=== PATIENT | female | born 1970 | race Caucasian/White ===

== ENCOUNTER 2020-01-22 18:29 | Emergency (ER) | payer BC, SELFPAY ==
[2020-01-22 18:44] VITALS: BP 129/72; PULSE 82; RESP 18; TEMP 37.1; O2SAT 98
--- NOTE | 2020-01-22 18:44 | ED.SKABFB ---
HPI - Skin/Abscess/Foreign Bdy General Chief complaint: Wound/Laceration Stated complaint: fish hook in her back Time Seen by Provider: 01/22/20 18:32 Source: patient Mode of arrival: ambulatory Limitations: no limitations History of Present Illness HPI narrative: 49-year-old female presents to urgent care with complaints of fishhook lodged to her left upper back for the past 30 minutes. Patient reports her last tetanus was 6 to 7 years ago. Patient denies numbness, tingling, fever, body aches, chills, nausea, vomiting or diarrhea. MD complaint: foreign body (fish hook) Onset (ago): minute(s) (30) Tetanus up to date: no Location: back (left upper back) Severity: mild Severity scale (1-10): 1 Relieving factors: medication Exacerbating factors: none Associated symptoms: denies other symptoms Treatments prior to arrival: none Related Data Home Medications Medication Instructions Recorded Confirmed topiramate [Topamax] 75 mg PO BID 01/22/20 01/22/20 Allergies Allergy/AdvReac Type Severity Reaction Status Date / Time No Known Allergies Allergy Verified 01/22/20 18:46 Review of Systems Review of Systems: All systems reviewed & are unremarkable except as noted in HPI and below Constitutional: Constitutional: Denies chills, Denies fever(s) and Denies weakness Cardiovascular: Cardiovascular: Denies chest pain, Denies rapid heart rate and Denies radiating jaw, neck or arm pain Respiratory: Respiratory: Denies cough, Denies dyspnea and Denies wheezing Gastrointestinal: Gastrointestinal: Denies diarrhea, Denies nausea and Denies vomiting Integumentary/Breasts: Comments: FB to left upper back Neurologic: Denies dizziness and Denies syncope [facility] Past Medical History Medical History (Updated 01/22/20 @ 19:04 by Bhakti Laboy APRN) Migraine Family History Family History (Updated 01/22/20 @ 18:46 by Bhakti Laboy APRN) Father Carcinoma of colon Mother No problems noted. Social History Social History (Updated 01/22/20 @ 18:47 by Bhakti Laboy APRN) Smoking status: Never smoker Gender identity (if verbalized by the patient): Female Exam Const: General: healthy appearing, no acute distress and alert Orientation/consciousness: patient oriented x3 Neck: Neck: normal visual inspection Resp: Effort & Inspection: normal respiratory effort and not labored Auscultation: clear to auscultation bilaterally and no rhonchi Cardio: Rate: regular rate, not bradycardic and not tachycardic Rhythm: regular rhythm Heart sounds: no murmurs Back/Spine/Pelvis: Back: no CVA tenderness Skin: General skin exam: normal color Rashes: no rashes Other: 2 hooks of a Trebble Boomer lodged lodged to left upper back -- no bleeding noted. Extrem: General: normal to inspection and full ROM Psych: Appearance: grossly normal and well kempt Affect: normal affect Attitude: cooperative Course Vital Signs Vital signs: Vital Signs Temperature 37.1 C 01/22/20 18:44 Pulse Rate 82 01/22/20 18:44 Respiratory Rate 18 01/22/20 18:44 Blood Pressure 129/72 01/22/20 18:44 Pulse Oximetry 98 01/22/20 18:44 Temperature 37.1 C 01/22/20 18:44 Pulse Rate 82 01/22/20 18:44 Respiratory Rate 18 01/22/20 18:44 Blood Pressure 129/72 01/22/20 18:44 Pulse Oximetry 98 01/22/20 18:44 Procedures Foreign Body Removal Foreign Body #1: Foreign Body Removal Date: 01/22/20 Foreign Body Removal Time: 19:00 Site: left and other (upper back) Description of foreign body: fish hook (2 hooks of a treble fish hook ) Sedation/Analgesia: other (1.5ml of Lidocaine 1%) Technique: removal with forceps Complications: none Foreign Body Removal Narrative: Patient tolerated well -- area cleansed, neosporin and bandage applied MDM - Skin/Abscess/Foreign Bdy MDM Narrative Medical decision making narrative: Wound care discussed with patient -- patient ag
[2020-01-22] MEDS: TETANUS,DIPHTHERIA,AC PERTUSSIS ADULT (0.5 ML) BOOSTRIX IM (18:46)
--- NOTE | 2020-01-22 18:59 | PC.NURSE ---
fish hook removed tolerated well
== END 2020-01-22 19:08 | disposition home or self-care (01) ==
PROVIDERS: Emergency Provider Nurse Practitioner Family
DX: S21.242A Puncture wound with foreign body of left back wall of thorax without penetration into thoracic cavity, initial encounter (principal); X58.XXXA Exposure to other specified factors, initial encounter; Z23 Encounter for immunization
CPT/HCPCS: 90471; 90715; 99203; G0463

== ENCOUNTER 2020-11-04 12:35 | Emergency (ER) | payer BC, SELFPAY ==
--- NOTE | ~2020-11-04 | CT_ITS ---
EXAMINATION: CT brain wo con DATE: 11/04/2020 13:29 INDICATION: Neck pain. Fall. TECHNIQUE: Computed tomography (CT) of the head was performed without intravenous contrast. The mA wa s adjusted according to patient size. Iterative reconstruction technique was employed. The dose-lengt h product was 605.33 mGy-cm. COMPARISON: None FINDINGS: There is no intracranial hemorrhage, acute infarction, or abnormal intracranial mass lesion . The ventricles are normal in size. There is mild mucosal thickening in the paranasal sinuses. The m astoid air cells are normal. IMPRESSION: 1. Normal brain. Reviewed, dictated and finalized at location A. IMPRESSION: 1. Normal brain.
--- NOTE | ~2020-11-04 | XR_ITS ---
EXAMINATION: XR elbow LT min 3V DATE: 11/04/2020 13:47 INDICATION: Left elbow laceration. TECHNIQUE: 3 views of left elbow were obtained. COMPARISON: None. FINDINGS: Bone alignment is normal. No fracture. Joint spaces are well maintained. There is no elbow joint effusion. There is a laceration posteromedial to the distal humerus. IMPRESSION: 1. No fracture or radiopaque foreign body. Reviewed, dictated and finalized at location A.
--- NOTE | ~2020-11-04 | CT_ITS ---
EXAMINATION: CT cervical spine wo con DATE: 11/04/2020 13:29 INDICATION: Neck pain. Fall. TECHNIQUE: Computed tomography (CT) of the cervical spine was performed without intravenous contrast. Automated exposure control and iterative reconstruction technique were employed. The dose-length pro duct was 302.80 mGy-cm. COMPARISON: None FINDINGS: There is mild scarring at the lung apices. There is 6 degrees levocurvature of cervical spi ne. Vertebral body heights are normal. There is severely decreased disc height at C5-C6. The followin g disc levels are specifically discussed: C2-C3: There is no uncovertebral joint osteoarthritis. There is mild left facet joint osteoarthritis. There is no neural foraminal stenosis. There is no central canal stenosis. C3-C4: There is no uncovertebral joint osteoarthritis. There is no facet joint osteoarthritis. There is no neural foraminal stenosis. There is no central canal stenosis. C4-C5: There is no uncovertebral joint osteoarthritis. There is mild right facet joint osteoarthritis . There is no neural foraminal stenosis. There is no central canal stenosis. C5-C6: There is severe bilateral uncovertebral joint osteoarthritis. There is mild bilateral facet shelbi int osteoarthritis. There is mild bilateral neural foraminal stenosis. There is mild central canal st enosis. C6-C7: There is no uncovertebral joint osteoarthritis. There is no facet joint osteoarthritis. There is no neural foraminal stenosis. There is no central canal stenosis. C7-T1: There is no uncovertebral joint osteoarthritis. There is severe bilateral facet joint osteoart hritis. There is no neural foraminal stenosis. There is no central canal stenosis. IMPRESSION: 1. No fracture. 2. Severe spondylosis at C5-C6. Reviewed, dictated and finalized at location A.
--- NOTE | ~2020-11-04 | XR_ITS ---
EXAMINATION: XR chest 1V DATE: 11/04/2020 13:48 INDICATION: Mid back pain. Fall. TECHNIQUE: A single frontal view of the chest was obtained. COMPARISON: None. FINDINGS: The chest demonstrates clear lungs without pneumonia, pleural effusion, or pneumothorax. Th e heart size is normal. IMPRESSION: 1. No acute cardiopulmonary disease. Reviewed, dictated and finalized at location A.
--- NOTE | ~2020-11-04 | XR_ITS ---
EXAMINATION: XR thoracic spine 3V DATE: 11/04/2020 13:46 INDICATION: Back pain. Fall. TECHNIQUE: 3 views of thoracic spine on 5 radiographs were obtained. COMPARISON: None. FINDINGS: There is 4 degrees dextrocurvature of upper thoracic spine and 4 degrees levocurvature of l ower thoracic spine. Vertebral body heights and intervertebral disc heights are normal. IMPRESSION: 1. No fracture. Reviewed, dictated and finalized at location A. IMPRESSION: 1. No fracture.
[2020-11-04 12:47] VITALS: BP 132/79; PULSE 70; RESP 16; TEMP 36.8; O2SAT 100
[2020-11-04 14:07] VITALS: BP 131/78; PULSE 84; RESP 16; O2SAT 100
[2020-11-04] MEDS: ONDANSETRON INJ 4 MG/2 ML VIAL (14:10)
[2020-11-04] MEDS: MORPHINE SULFATE (*CRX) 4 MG/ML INJ (14:10)
--- NOTE | 2020-11-04 15:25 | ED.FALL ---
HPI - Fall General Chief Complaint: Fall Stated Complaint: fall Time Seen by Provider: 11/04/20 12:58 Source: patient, EMS and RN notes reviewed Mode of arrival: EMS Limitations: no limitations History of Present Illness HPI Narrative: Patient is 50 years old white female fell down 5 steps lacerated the back of left arm in the way down. Patient denies other injuries. Patient denies any fever, chills, nausea, vomiting, chest pain, abdominal pain, headache. Last tetanus shot was a few months ago. Patient requested plastic surgeon Related Data Allergies Allergy/AdvReac Type Severity Reaction Status Date / Time No Known Allergies Allergy Verified 11/04/20 12:51 Review of Systems Review of Systems: Narrative: CONSTITUTIONAL: Denies fever, chills, or sweats. EYES: Denies visual changes, redness, or discharge. ENT: Denies rhinorrhea, congestion, sore throat, or otalgia. CARDIOVASCULAR: Denies chest pain, palpitations, or edema. RESPIRATORY: Denies cough or dyspnea. GASTROINTESTINAL: Denies abdominal pain, nausea, vomiting, or diarrhea. GENITOURINARY: Denies dysuria or hematuria. SKIN: Denies rash or itching. MUSCULOSKELETAL: Denies back pain, joint pain, or myalgia. NEUROLOGIC: Denies headache, numbness, or weakness. PSYCHIATRIC: Denies anxiety or depression. PMFSH Past Medical History Medical History Migraine Family History Family History Father Carcinoma of colon Mother No problems noted. Social History Social History Smoking status: Never smoker Gender identity (if verbalized by the patient): Female Exam Narrative: Exam Narrative: General appearance: Well-developed, well-nourished Skin: Normal color, left upper extremity showed 1 cm laceration across the back of upper arm including the fatty layer. No muscle involved Head: Normocephalic, nontraumatic Eyes: Clear conjunctiva ENT: Oropharynx normal, ears normal, nose normal Neck: Supple, nontender Chest and respiratory: Airway patent, no respiratory distress, no accessory muscle use Heart: Regular rate/rhythm Abdomen: Soft, nontender, no organomegaly, quiet bowel sounds Vascular: Normal peripheral pulses, normal capillary refill. Musculoskeletal: Diffuse tenderness across thoracic spine, no bruises, no swelling or rash Neurologic: Alert and oriented ?3, OPERATIONS REPRESENTATIVE is normal as tested, no gross motor deficit Course Course Emergency Course: Improving Consultations Consultation #1: Dr. Travis The emergency room and managed the laceration. Date: 11/04/20 Time: 15:40 Vital Signs Vital signs: Vital Signs Temperature 36.8 C 11/04/20 12:47 Pulse Rate 70 11/04/20 12:47 Respiratory Rate 16 11/04/20 12:47 Blood Pressure 132/79 11/04/20 12:47 Pulse Oximetry 100 11/04/20 12:47 Temperature 36.8 C 11/04/20 12:47 Pulse Rate 84 11/04/20 14:07 Respiratory Rate 16 11/04/20 14:07 Blood Pressure 131/78 11/04/20 14:07 Pulse Oximetry 100 11/04/20 14:07 MDM - Fall MDM Narrative Medical decision making narrative: Patient had a fall and left arm laceration. CT head, CT cervical spine, chest x-ray, thoracic spine x-ray ordered. Differential Diagnosis Differential diagnosis: Likely compression fracture and concussion without loss of consciousness Critical Care Time Critical Care Time Critical Care Time: Yes Total Critical Care Time: 45 Discharge Plan Discharge Clinical Impression: Fall Qualifiers: Encounter type: initial encounter Qualified Code(s): W19.XXXA - Unspecified fall, initial encounter
[2020-11-04 15:40] VITALS: BP 128/76; PULSE 78; RESP 16; O2SAT 99
--- NOTE | 2020-11-04 15:55 | P.CONS_ITS ---
Assessment and Plan Assessment and plan (1) Arm laceration: Qualifiers: Encounter type: initial encounter Laterality: left Qualified Code(s): S41.112A - Laceration without foreign body of left upper arm, initial encounter Code(s): S41.119A - Laceration without foreign body of unspecified upper arm, initial encounter Status: Acute Additional Plan Repair laceration in the ED. 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 Keflex, Hydrocodone. HPI Data of Consult Date/Time: 11/04/20 15:55 Primary Care Provider: SECTION WEAVER PHYSICIAN Consult Narrative Narrative: Denia Melvin is a 50 year old female, alert and cooperative, on the gurney in the ED. She is with a friend. Her C-collar was removed by ER MD as I spoke to her. Her complaint is a laceration on the posterior of her left arm. It is gaping through subcutaneous tissue to the deep fascia. There is no fascial violation. She has no numbness, moves digits and elbow well. Her injury occurred at her home when she tripped and fell descending narrow steps from an attic. Her arm caught on a cabinet handle. This occurred approx. 4 hours ago. She has no significant past medical history, but is on Thyroid replacement. She requests that this laceration be repaired by me in the ED. 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 She is aware that there will be a scar and that infection is likely the most probable complication. She is UTD on TDaP in this ED from last year. [facility] Past Medical History Medical History Migraine Family History Family History Father Carcinoma of colon Mother No problems noted. Social History Social History Smoking status: Never smoker Gender identity (if verbalized by the patient): Female Meds Home Medications and Allergies Home Medications Medication Instructions Recorded Confirmed Type cephalexin [Keflex] 500 mg PO Q6H #28 cap 11/04/20 Rx hydrocodone-acetaminophen 1 tablet PO Q4H #20 tablet 11/04/20 Rx Allergies Allergy/AdvReac Type Severity Reaction Status Date / Time No Known Allergies Allergy Verified 11/04/20 12:51 Vital Signs Vital Signs - 24 hr 11/04/20 12:47 11/04/20 14:07 11/04/20 15:40 Temperature 36.8 C Pulse Rate 70 84 78 Respiratory Rate 16 16 16 Blood Pressure 132/79 131/78 128/76 Pulse Oximetry 100 100 99
--- NOTE | 2020-11-04 16:10 | PM.PROC ---
Procedure Note - Detailed Date of procedure: 11/04/20 Pre-op diagnosis: fall Laceration of the left posterior arm. Post-op diagnosis: same Procedure performed: 11 cm intermediate repair of laceration of the left arm. Description of procedure: Pt lay on the gurney. Voiced consent to staff. Positioned and prepped and draped. Local anesthesia with 1% lidocaine with epinephrine 1:100,000. Copiously irrigated and examined. Deep fat separation without foreign body. Not stellate. Not bleeding. Deep tissue and dermis approximated with 3-0 Vicryl. Skin approximated with 5-o nylon. No complications. Appropriate bandage applied. Wound care discussed with patient and her friend. Briefed my care to the ER MD. Anesthesia: local Surgeon: Joseph Travis MD Estimated blood loss (mL): 0 Tourniquet time (min): 0 Drains: No Packing: No Pathology: none sent Complications: No immediate complications Condition: stable Disposition: other (Home)
== END 2020-11-04 15:42 | disposition home or self-care (01) ==
PROVIDERS: Emergency Provider Emergency Medicine
DX: S41.112A Laceration without foreign body of left upper arm, initial encounter (principal); M54.6 Pain in thoracic spine; M47.812 Spondylosis without myelopathy or radiculopathy, cervical region; W10.9XXA Fall (on) (from) unspecified stairs and steps, initial encounter
CPT/HCPCS: 12034; 70450; 71045; 72072; 72125; 73080; 96374; 96375; 99284; J2270; J2405; L0140